=== PATIENT | male | born 2000 | race Caucasian/White ===

== ENCOUNTER 2025-02-07 16:13 | Emergency (ER) | payer OTHER, SELFPAY ==
[2025-02-07 16:41] VITALS: BP 136/69; PULSE 94; RESP 18; TEMP 36.5; O2SAT 100
--- OUTSIDE RECORDS SUMMARY | 2025-02-07 17:09 | XMS_ITS | Continuity of Care Document ---
Author Name [facility] Organization DOD-AL Care Team Providers Care Head Chef Name Role Phone DOD-AL Unavailable Unavailable Problems Combined list of problems from Department of Defense and Veterans Affairs facilities. It does not include entries that were removed or entered in error. Problem Status Onset Date Problem Type Date of Resolution Comme nts Source ASSESSMENT, POST-DEPLOYMENT, DOCUMENTED ON [id number] Inactive 06/13/2022 Condition DoD Allergies, Adverse Reactions, Alerts Combined list of allergies from Department of Defense and Veterans Affairs facilities. It does not include entries that were removed or entered in error. Substance Category Reaction Severity Reaction type Status Date Reported Comments Source No Known Allergies Drug allergy (disorder) active 10/24/2022 [place] [address] Immunizations Combined list of available immunizations from the Department of Defense and Veterans Affairs facilities. Immunization Series Date Given Administered By Site Reaction Lot Number CVX Code Drug Blade Grinder Status Comments Source Influenza, injectable, quadrivalent, preservative free 0 2021 [id number] SmithKline (SKB) complet ed Influenza , injectabl e, quadrival ent, preservat arian free DoD anthrax vaccine 3 2021 [id number] [employer] [place] ([facility]) complet ed anthrax vaccine DoD anthrax vaccine 2 2021 [id number] [employer] [place] (MIP) complet ed anthrax vaccine DoD anthrax vaccine 1 2021 [id number] 24 [employer] [place] ([facility]) complet ed anthrax vaccine DoD typhoid Vi capsular polysaccharid e vaccine 1 2021 [id number] Sanofi Pasteur ([facility]) complet ed typhoid Vi capsular polysacch aride vaccine DoD Influenza, injectable, quadrivalent, preservative free 3 2020 [id number] 150 Adianaine (SKB) complet ed Influenza , injectabl e, quadrival ent, preservat arian free DoD SARS-COV-2 (COVID-19) vaccine, mRNA, spike protein, LNP, preservative free, 100 mcg or 50 mcg dose 2 2020 [id number] 207 RealDirect, Inc. (MOD) complet ed SARS-COV- 2 (COVID-19 ) vaccine, mRNA, spike protein, LNP, preservat arian free, 100 mcg or 50 mcg dose DoD SARS-COV-2 (COVID-19) vaccine, mRNA, spike protein, LNP, preservative free, 100 mcg or 50 mcg dose 1 2020 LIZETH MICHAEL [id number] 207 [employer] Inc. (MOD) complet ed SARS-COV- 2 (COVID-19 ) vaccine, mRNA, spike protein, LNP, preservat arian free, 100 mcg or 50 mcg dose DoD Influenza, injectable, quadrivalent, preservative free 1 2019 [id number] 150 Seqirus (SEQ) complet ed Influenza , injectabl e, quadrival ent, preservat arian free DoD hepatitis A-hepatitis B vaccine 2019 [id number] 104 GlaxoSmithKli ne complet ed hepatitis A-hepatit is B vaccine 03/25/20 Given Ambulat ory Pharmac y hepatitis A-hepatitis B vaccine 2019 [id number] 104 GlaxoSmithKli ne complet ed hepatitis A-hepatit is B vaccine 03/25/20 Given Ambulat ory Pharmac y hepatitis A and hepatitis B vaccine 3 2019 [id number] 104 [facility] (SKB) complet ed hepatitis A and hepatitis B vaccine DoD varicella virus vaccine 2019 [id number] 21 Merck & Company Inc complet ed varicella virus vaccine 09/06/19 Given Ambulat ory Pharmac y hepatitis A-hepatitis B vaccine 2019 [id number] 104 GlaxoSmithKli ne complet ed hepatitis A-hepatit is B vaccine 09/06/19 Given Ambulat ory Pharmac y varicella virus vaccine 2019 [id number] 21 Merck & Company Inc complet ed varicella virus vaccine 09/06/19 Given Ambulat ory Pharmac y hepatitis A-hepatitis B vaccine 2019 [id number] 104 GlaxoSmithKli ne complet ed hepatitis A-hepatit is B vaccine 09/06/19 Given Ambulat ory Pharmac y varicella virus vaccine 1 2019 [id number] 21 Merck (MSD) complet ed varicella virus vaccine DoD hepatitis A and hepatitis B vaccine 1 2019 [id number] 104 Adianaine (SKB) complet ed hepatitis A and hepatitis B vaccine DoD hepatitis A-hepatitis B vaccine 2018 [id number] 104 GlaxoSmithKli ne complet ed hepatitis A-hepatit is B vaccine 07/19/19 Given Ambulat ory Pharmac y varicella virus vaccine 2018 [id number] 21 Merck & Company Inc complet ed varicella virus vaccine 07/19/19 Given Ambulat ory Pharmac y hepatitis A-hepatitis B vaccine 2018 [id number] 104 GlaxoSmithKli ne complet ed hepatitis A-hepatit is B vaccine 07/19/19 Given Ambulat ory Pharmac y varicella virus vaccine 2018 [id number] 21 Merck & Company Inc complet ed varicella virus vaccine 07/19/19 Given Ambulat ory Pharmac y varicella virus vaccine 1 2018 [id number] 21 Merck (MSD) complet ed varicella virus vaccine DoD hepatitis A and hepatitis B vaccine 1 2018 [id number] 104 SmithKline (SKB) complet ed hepatitis A and hepatitis B vaccine DoD adenovirus vaccine, live 2018 [id number] 4 143 Teva Pharmaceutica complet ed adenoviru s vaccine, live 07/16/19 Given Ambulat ory Pharmac y influenza, injectable, quadrivalent- pf 2018 [id number] 346 150 Seqirus complet ed influenza , injectabl e, quadrival ent-pf 07/16/19 Given Ambulat ory Pharmac y tetanus, diphtheria, acellular pertu is 2018 [id number] 115 GlaxoSmithKli ne complet ed tetanus, diphtheri a, acellular pertussis 07/16/19 Given Ambulat ory Pharmac y meningococcal A,C,Y,W-135 (MCV4P) 2018 [id number] 114 sanofi pasteur complet ed meningoco ccal A,C,Y,W-1 35 (MCV4P) 07/16/19 Given Ambulat ory Pharmac y poliovirus vaccine, inactivated 2018 [id number] 10 sanofi pasteur complet ed polioviru s vaccine, inactivat ed 07/16/19 Given Ambulat ory Pharmac y influenza, injectable, quadrivalent- pf 2018 [id number] 346 150 Seqirus complet ed influenza , injectabl e, quadrival ent-pf 07/16/19 Given Ambulat ory Pharmac y adenovirus vaccine, live 2018 [id number] 4 143 Teva Pharmaceutica ls complet ed adenoviru s vaccine, live 07/16/19 Given Ambulat ory Pharmac y tetanus, diphtheria, acellular pertu is 2018 745N2 [address] complet ed tetanus, diphtheri a, acellular pertussis 07/16/19 Given Ambulat ory Pharmac y meningococcal A,C,Y,W-135 (MCV4P) 2018 [id number] 114 sanofi pasteur complet ed meningoco ccal A,C,Y,W-1 35 (MCV4P) 07/16/19 Given Ambulat ory Pharmac y poliovirus vaccine, inactivated 2018 [id number] 10 sanofi pasteur complet ed polioviru s vaccine, inactivat ed 07/16/19 Given Ambulat ory Pharmac y poliovirus vaccine, inactivated 1 2018 [id number] 10 Sanofi Pasteur (PMC) complet ed polioviru s vaccine, inactivat ed DoD meningococcal polysaccharid e (groups A, C, Y and W-135) diphtheria toxoid conjugate vaccine (MCV4P) 1 2018 [id number] 114 Sanofi Pasteur (PMC) complet ed meningoco ccal polysacch aride (groups A, C, Y and W-135) diphtheri a toxoid conjugate vaccine (MCV4P) DoD tetanus toxoid, reduced diphtheria toxoid, and acellular pertu is vaccine, adsorbed 1 2018 745N2 115 mycujoo (SKB) complet ed tetanus toxoid, reduced diphtheri a toxoid, and acellular pertussis vaccine, adsorbed DoD Adenovirus, type 4 and type 7, live, oral 1 2018 [id number] 4 143 [facility] (BRR) complet ed Adenoviru s, type 4 and type 7, live, oral DoD Influenza, injectable, quadrivalent, preservative free 1 2018 [id number] 346 150 Seqirus (SEQ) complet ed Influenza , injectabl e, quadrival ent, preservat arian free DoD measles virus vaccine 0 2018 05 () Not Given measles virus vaccine DoD rubella virus vaccine 0 2018 06 () Not Given rubella virus vaccine DoD mumps virus vaccine 0 2018 07 () Not Given mumps virus vaccine DoD Results Combined list of recent chemistry, hematology and other laboratory results from Department of Defense and Veterans Affairs, ranging from 15 months to all on record, depending upon the facility. Order Name Results Value Reference Range Date Interpretation Specimen Comments Source Infectiou s Disease HIV-1/O/2 Non-Reac tive 1 (11/10/24 3:30 PM) 11/10 N Interpretiv e Data: INTERPRETAT ION: This method is a screening procedure for the detection of HIV p24 Antigen and Antibodies to HIV-1, including Group O, and/or HIV-2. NON-REACTIV E: HIV-1 antigen and HIV-1 / HIV-2 antibodies were not detected. No laboratory evidence of HIV infection. A negative test result does not exclude the possibility of exposure to or infection with HIV. HIV antibodies and/or p24 antigen may be undetectabl e in some stages of the infection and in some clinical conditions. If acute HIV infection is suspected, consider submitting another specimen to a reference laboratory for HIV-1 RNA. SCREEN REACTIVE - CONFIRMATIO N TO FOLLOW: Possible presence of HIV-1antibo dies, HIV-2 antibodies and/or HIV-1 p24 antigen. Specimen will reflex to the confirmatio n testing that fulfills the Center for Disease Control and Prevention' s HIV diagnostic algorithm. Refer to [facility] Lab Guide for additional information : [email or web address]/ kj/[email or web address]/EPIL ab/Pages/la [email or web address] x Testing performed by Electro[employer] alberto ce. 5600A-U [facility] EPILAB Infectiou s Disease HIV-1/O/2 Non-Reac tive 2 (01/22/24 1:50 PM) 01/21 N Interpretiv e Data: INTERPRETAT ION: This method is a screening procedure for the detection of HIV p24 Antigen and Antibodies to HIV-1, including Group O, and/or HIV-2. NON-REACTIV E: HIV-1 antigen and HIV-1 / HIV-2 antibodies were not detected. No laboratory evidence of HIV infection. A negative test result does not exclude the possibility of exposure to or infection with HIV. HIV antibodies and/or p24 antigen may be undetectabl e in some stages of the infection and in some clinical conditions. If acute HIV infection is suspected, consider submitting another specimen to a reference laboratory for HIV-1 RNA. SCREEN REACTIVE - CONFIRMATIO N TO FOLLOW: Possible presence of HIV-1antibo dies, HIV-2 antibodies and/or HIV-1 p24 antigen. Specimen will reflex to the confirmatio n testing that fulfills the Center for Disease Control and Prevention' s HIV diagnostic algorithm. Refer to [facility] Lab Guide for additional information : [email or web address].[facility]/ [email or web address]/[email or web address]/EPIL ab/Pages/la [email or web address] x Testing performed by Dora johnson 5600A-U [facility] Miscellan eous Sendouts Repository Sample Received (01/22/24 1:50 PM) 01/21 N 5600A-U [facility] EPILAB Encounters Combined list of: 1) Encounters from Department of Veterans Affairs facilities going backup to the last 18 months, not all VA inpatient encounters are included; 2) Encounters from the Department of Defense facilities going backup to 280 months. Location Location Details Encounter Type Encounter Number Reason For Visit Attending Provider ADM Date DC Date Status Disposition [place] [address](Hea ring Conservat ion, BMT) OUTPATIENT [id number] JOEL SUMMERS 07/20 Released w/o Limitations [facility] [place] [address](H earing Conserv ation, BMT) [place] [address] OUTPATIENT [id number] Notes Entered by: NEELIMA WHITNEY 20 Jul 2019 1328 ------- ------- ------- ------- -- Strep Prophyl MAX Nicolas 07/20 Released w/o Limitations [facility] [place] [address]([facility] e[facility]equiel) [facility] Medical [facility] [place] QUINTEROS [place]) TELE CONSULT [id number] Notes Entered by: LORENE ROBERTS 11 Apr 2020 1409 ------- ------- ------- ------- [facility] LORENE DAVIS 04/11 Released to Self Care [address] [place] [address])([facility]) [address] [place] [address])([facility]) OUTPATIENT [id number] Notes Entered by: NATALIA TREVINO 01 Jul 2020 1513 ------- ------- ------- ------- -- Audiogr am NATALIA TREVINO 07/01 Released w/o Limitations [address] [place] [address])([facility]) [address] [place] [address])([facility]) TELE CONSULT [id number] Notes Entered by: LORENE ROBERTS 12 Jul 2020 1441 ------- ------- ------- ------- -- Dental- 422 Issue LORENE DAVIS 07/12 Other Not Elsewhere Classified [address] [place] [address])([facility]) [address] [place] [address])([facility]) OUTPATIENT [id number] 9 Notes Entered by: Brice CADENA 11 Dec 2020 1321 ------- ------- ------- ------- -- phaq JACKIE CADENA 12/11 Released w/o Limitations [address] [place] [address])([facility]) [address] [place] [address])([facility]) OUTPATIENT [id number] Notes Entered by: KAYA LOPES 16 May 2021 1115 ------- ------- ------- ------- -- ANNUAL AUDIOGR AM MARTINA LINARES 05/16 Released w/o Limitations [address] [place] [address])(09 19 Primary Care Clinic) [address] [place] [address])(126 th [facility]) OUTPATIENT [id number] Notes Entered by: KEYSHAWN REDMAN 28 Oct 2021 1408 ------- ------- ------- ------- -- KEYSHAWN ODONNELL 10/28 Released w/o Limitations [address] [place] [address])(09 19 Primary Care [facility]) [address] [place] [address])(126 [facility]) OUTPATIENT [id number] Notes Entered by: Brice CADENA 03 Dec 2021 1626 ------- ------- ------- ------- -- JACKIE Davis 12/03 Released w/o Limitations [address] [place] [address])(09 19 Primary Care Clinic) [address] [place] [address])(126 [facility]) OUTPATIENT [id number] SHLOMO DOMÍNGUEZ 01/03 Released w/o Limitations [address] [place] [address])(09 19 Primary Care Clinic) [address] [place] [address])(126 th [facility]) OUTPATIENT [id number] Notes Entered by: NATALIA TREVINO 31 Mar 2022 1626 ------- ------- ------- ------- -- AUDIOGR AM - JULIANNE STANTON 03/31 Released w/o Limitations [address] [place] [address])(09 19 Primary Care Clinic) [address] [place] [address])(Ramírez [facility] Virus) OUTPATIENT [id number] SANDI Montes De Oca 04/15 Released w/o Limitations [address] [place] [address])(P andemic Virus) Theater Facility OUTPATIENT [id number] Theater Provider 06/14 Released w/o Limitations Theater Facilit y [address] [place] [address] Dem[facility])(126 Primary Care Clinic) OUTPATIENT [id number] Notes Entered by: Brice CADENA 09 Dec 2022 0850 ------- ------- ------- ------- -- phaq JACKIE CADENA 12/09 Released w/o Limitations [address] [place] [address] [facility])(09 19[facility]) [address] [place] [address])([address] [place] [address]) TELE CONSULT [id number] Notes Entered by: CHRISSY MICHAEL 11 Mar 2023 1313 ------- ------- ------- ------- -- Review LIZETH MICHAEL 03/11 Other Not Elsewhere Classified [address] [place] [address] [place])(09 19[facility]) [address] [place] [address])([facility]) OUTPATIENT [id number] Notes Entered by: Brice CADENA 12 Mar 2023 1413 ------- ------- ------- ------- -- review of a lucrecia monte DRHA3 JACKIE CADENA 03/12 Released w/o Limitations [address] [place] [address] [facility])(09 19[facility]) 8224R-[id number] [facility] Dental [id number] SYLVIA CAMARA 09/25 Discharge Disposition: Home or Self Care 8224R-1 26 ANNALISE 0055A-375 th [facility] Outpatient [id number] TEQUILA ORGAN 11/10 Discharge Disposition: Home or Self Care 0055A-[facility] 8224R-126 [facility] Clinic [id number] JACKIE DAVISON 11/18 Discharge Disposition: Home or Self Care 8224R-1 26 ANNALISE 0055H-375 th [facility] [id number] TEQUILA LMORGAN 05/02 /2025 05/02 /2025 Discharge Disposition: Home or Self Care 0055H-3 [facility] Procedures Combined list of: 1) Procedures from Department of Veterans Affairs facilities going back up to thelast 18 months, not all [place] non-surgical procedures are included; 2) All procedures from the Department of Defense facilities. Procedure Procedure Type Code Date Perfomer Comments [facility] No data available for this section Ambulatory Pharmacy PURE TONE AUDIOMETRY (THRESHOLD), AUTOMATED; AIR ONLY 022 [facility] PSYCHOLOGICAL OR NEUROPSYCHOLOGICAL TEST ADMINISTRATION, WITH SINGLE AUTOMATED, STANDARDIZED INSTRUMENT VIA ELECTRONIC PLATFORM, WITH AUTOMATED RESULT ONLY 022 [facility] PURE TONE AUDIOMETRY (THRESHOLD), AUTOMATED; AIR ONLY 020 [facility] Threshold Audiogram (Pure Tone) Threshold Audiogram (Pure Tone) [id number] Supervised Injection Intramuscular Supervised Injection Intramuscular [address] [facility] Threshold Audiogram (Pure Tone) Automated Threshold Audiogram (Pure Tone) Automated 0208T NATALIA TREVINO [facility] Psychometric Neuropsych Testing Battery Admin By Computer Psychometric Neuropsych Testing Battery Admin By Computer [id number] [facility] Social History Combined list of available smoking, tobacco, and other social history from Department of Defense and Veterans Affairs facilities. Social History Type Response Date Comment [facility] Sex Representation Male (finding) 05/26/2020 Un known Organization Sexual Orientation Ambula tory Pharmacy Gender identity Ambulator y Pharmacy This section is an empty social history section. [facility] Assessment and Plan Combined list of future care activities from Department of Defense and Veterans Affairs facilities (e.g., assessment and plan notes, appointments, orders, and referrals). Additional future care activities may be listed in the Plan of Care section. 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 Patient s PHAQ responses suggest there WERE NO Priority items requiring immediate action. Retention Waiver: No Profile: No Medications: None reported or found Medication List Active Medications No Active Medications Found Medications Inactivated in the Last 72 Hours No medications found. Allergies: No Known Allergies Does youth services librarian need Annual Mental Health review? NO VA Disability Rating: No If yes please update below. Time Motion Analyst Note: SM reports he is in excellent health with no pain, no medications and no new medical history. report complete. PHAQ ready for PCM review and signature. 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 Patient s PHAQ responses suggest Routine i tems requiring action. Retention Waiver: No P rofile: No Medications: Medication List Active Medications No Active Medications Found Medications Inactivated in the Last 72 Hours No medications found. Allergies: No Known Allergies Does youth services librarian need Annual Mental Health review? 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 Member has nothing more to report. PHAQ ready for PCM review and signature. Addendum by JACKIE CADENA on January 05, 2024 12:03 CDT PHAQ Completed in [facility], [id number] c opied below. Diagnosis is [id number] Medication reconciliation was accomplished. IMR requirements checked in [facility] (all GREEN). General pavel chaparro performed i n chart review. Denies SI/HI. All questions answered. Member has no n on emergent positive responses on P AYDEN. I t has not inhibited member from performing their duties. Member is assumed fit for duty. Denies any other acute or chronic health concerns currently. Mental health resources to include the mental health clinic, OP, Visual Merchandising Assistant, and One Source discussed with patient v ia review. Recommend f/u with PCM for any new or ongoing m edical concerns. Member can: 1) deploy 2) perform the duties of the assigned [employer], 3) meet retention medical standards, 4) complete the fitness assessment (FA), X08.8- A ir contaminants exposure i n past d eployment(s).Member has been exposed to but not limited to poor air quality, dust, mold, animal excrement. Member is not symptomatic currently but may have issues in the future. COPY OF PHAQ2 [id number]: ANNUAL PERIODIC HEALTH ASSESSMENT I. IT APPLICATION ARCHITECT INFORMATION AND DEMOGRAPHICS (SMI) 1. Last Name: DERIC 2. First Name: WANDA 3. Middle Name: MANUEL 4. Assessment Date: 5. : 6. Age: 22 7. Gender: M 8. Do[employer] ID Number: [id number] 9. Service Branch: [employer] 10. Component: 11. Status: Active [employer] [place] 12. Pay Grade: E05 13. Unit Name: [address] [place] [address] 14. Duty Station/Location: [place] 15. UIC: [id number] 16. Is this your first Periodic Health Assessment (PHA)?: N 17. Are you enrolled in a secure messaging system with your health care provider?: U 18. Current contact information: Preferred Method: Day Time Phone DSN: Day Time Phone: [phone] Night Time Phone: [phone] Email 1: [email or web address] Email 2: Address: [address] [place] [address] E City: [place] State: [place] Zip Code: [phone] 19. Point of contact who can always reach you: Name: ARRON HOPKINS Phone 1: [phone] Phone 2: EMAIL: [email or web address] Address: [address] [place] [address] E City: [place] State: [place] Zip Code: [address] II. DEPLOYMENT INFORMATION (DEP) 1. [ 1 ] Total number of deployments in the PAST 5 YEARS 2. [ [place] ] Primary country of last deployment 3. [ ] Date departed theater 4. [ N ] Are you going to deploy within the NEXT 120 DAYS? III. 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 [ No ] Does your specialty require an operational duty physical exam? 4. [ No ] Are you currently enrolled in a medical surveillance/occupational health program?: No IV. MEDICAL CONDITIONS (SLIME): 1. Since your last PHA, have you experienced any of the following health conditions, and if so, what is your status? [ ] Conditions with no medical care [ ] Conditions with medical care, but no longer under treatment [ ] Conditions with medical care, and NOW under treatment 2. Since your last PHA, have you experienced any of the following health conditions, and if so, what is your status? [ ] Conditions with no medical care [ ] Conditions with medical care, but no longer under treatment [ ] Conditions with medical care, and NOW under treatment 3. For any condition marked YES in question 1 or 2, are you currently on any profile or limited duty for that condition? [ ] Conditions 4. [ Yes ] Have you been based or stationed at a location where an open burn pit was used? 5. [ No ] Have you been exposed to toxic airborne chemicals or other airborne contaminants? 6. [ No ] Are you enrolled in the Airborne Hazards and Open Burn Pit Registry? 7. [ Y ] Federal law requires eligible members to enroll in the Airborne Hazards and Open Burn Pit Registry or opt-out. If eligble, choose one: 8. Have you had any surgery since your last PHA?: No 10.a. [ No ] Since your last PHA, has a health care provider recommended surgery(s) that you have not had? 11.a. [ No ] Do you currently require hearing aids, special medical supplies, CPAP, adaptive equipment, assistive technology devices, and/or other special accommodations? 12.a. [ No ] Do you have a waiver or profile for any part of your Service's physical fitness test? 13.a. [ No ] Do you have any problems wearing a gas mask, ballistic helmet, body armor, and/or chemical/biological protective garments? 14.a. [ No ] Have you ever been told by a health care provider that you SHOULD NOT receive an immunization for medical reasons? 15.a. [ No ] Do you have a permanent profile or an Assignment Limitation Code C? 16.a. [ No ] Are you on a temporary profile or limited duty? 17. [ 0 ] During the PAST 2 years, how many times have you been placed on a temporary profile or on limited duty? V. INDIVIDUAL MEDICAL READINESS (IMR) 1. [ No ] Do you have any allergies? 3. [ Not required ] Do you have red medical warning dog tags? 4. [ No ] Do you wear corrective lenses? . BEHAVIORAL HEALTH (MHA) 1. a. [ None ] Over the PAST MONTH, what major life stressors have you experienced that are a cause of significant concern or make it difficult for you to do your work, take care of things at home, or get along with other people (for example, serious conflicts with others, relationship problems, or a legal, disciplinary or financial problem)? 2. a. [ No ] In the PAST YEAR did you receive care for any mental health condition or concern such as, but not limited to post traumatic stress disorder (PTSD), depression, anxiety disorder, alcohol abuse or substance abuse? 3. [ None ] What prescription or over-the counter medications (including herbals/supplements) for sleep, pain, combat stress, or a mental health problem are you CURRENTLY taking? 4. a. [ No ] In the past 12 months, have you gambled? 5. a. [ Monthly or less ] How often do you have a drink containing alcohol? 5. b. [ 1 or 2 ] How many drinks containing alcohol do you have on a typical day when you are drinking? 5. c. [ Never ] How often do you have six or more drinks on one occasion? 6. Have you ever had any experience that was so frightening, horrible, or upsetting that in the PAST MONTH, you: 6. a. [ No ] Have had nightmares about it or thought about it when you did not want to? 6. b. [ No ] Tried hard not to think about it or went out of your way to avoid situations that remind you of it? 6. c. [ No ] Were constantly on guard, watchful or easily startled? 6. d. [ No ] [place] numb or detached from others, activities, or your surroundings? 6. e. [ Not answered ] [place] guilt or unable to stop blaming yourself or others for the event(s) or any problems the event(s) may have caused? 7. Over the LAST 2 WEEKS, how often have you been bothered by the following problems? 7. a. [ Not at all ] Little interest or pleasure in doing things 7. b. [ Not at all ] Feeling down, depressed, or hopeless 8. [ No ] Would you like to schedule an appointment with a health care provider to discuss any health concern(s)? 9. [ No ] Are you interested in receiving information or assistance for a stress, emotional or alcohol concern? 10. [ No ] Are you interested in receiving assistance for a family or relationship concern? 11. [ No ] Would you like to schedule a visit with a tank tender, mental health care provider, or a community support counselor? VII. FAMILY HISTORY AND LIFESTYLE (LIF) 1. [ Excellent ] Overall, how would you rate your health during the PAST MONTH? 2. [ None/Don't Know ] Member indicates that family members have the following problems 6. [ Yes ] I participate in moderate intensity physical activites at least 2.5 hours, or a combination of moderate and vigorous aerobic activites, for at least 75 minutes per week. 7. In a typical week, I do physical activities specifically designed to STRENGTHEN my muscles: [ 5 ] Day(s) per week 8. [ None ] What prescriptions or [id number] medications are you CURRENTLY taking for health problems on a ROUTINE BASIS? 9. Which of the following products have you taken since your last PHA: Protein Supplements/Creatine: Once a week 11. Think about the PAST 30 DAYS. How often did you eat/drink the following foods/beverages? [ 3 to 6 servings per week ] Fruits [ 1 serving per day ] Vegetables [ 1 serving per day ] Starchy Vegetables [ 1 serving per day ] Whole Grains [ 1 serving per day ] Dairy and Calcium Containing Foods [ 3 to 6 servings per week ] Fish [ 2 servings per day ] Lean Protein [ 1 serving per day ] Sugar-Sweetened Beverages ] Have you had a cholesterol check by a health medicare sales executive within the PAST 5 YEARS? 13.a. In the PAST 30 DAYS, which of the following products have you used on at least one day? None 15. Which of the following best describes your past tobacco use? I have never used tobacco products. 16. [ No ] Are you regularly exposed to secondhand smoke? 17. [ 7 to 9 hours ] During the LAST 2 WEEKS, how many hours of sleep did you get on most days? 18. [ No ] During the LAST 2 WEEKS, have you felt impaired or unable to adequately perform due to sleepiness or poor quality sleep? 19. [ No ] Have you had any unexplained weight loss or gain since your last PHA? 20. Member is not at risk for sexually transmitted infections. 22. Since your last PHA, what, if anything, have you and your partner used to keep from getting ? [ I am, or my partner is, currently . ] I am not actively taking steps to prevent as 23. [ No ] In the last year, have you or your partner had a scare, where you were not trying to get but were worried enough to use a home test? X. OTHER MEDICAL (OTH) 1. [ 0 ] Rate the amount of pain you have had, on average, over the PAST 24 HOURS 3. [ No ] Since your last PHA, have you received care or treatment for any medical and/or mental health condition(s) from a civilian or non- facility? 5. Member acknowledged responsibility for reporting health issues. 7. [ No ] Woud you like to schedule an appointment with a health care provider to discuss any health concerns? XI. SEPARATION AND CHCF 1. 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 PART B. RECORD REVIEW AND RECOMMENDATIONS I. RECORD REVIEWER INFORMATION 1. Last Name: IVORY 2. First Name: ALLY 3. Middle Name: ADRIAN 4. Service Branch: [employer] 5. 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 EMAIL: [email or web address] 8. Facility: [address] [facility] 9. Unit: [address] [place] [address] 10. Address: [address] [place] [address] 11. State: [place] 12. Zip Code: [address] 13. 14. Date Record Review: II. MEDICAL SCREENING 1. [ ] Date of membership director's most recent PHA 2. [ 5 feet 7 inches Date: ] membership director's most recently documented height 3. [ 170 pounds Date: ] membership director's most recently documented weight 4. [ 122/72 Date: ] membership director's most recently documented blood pressure reading 5. [ No ] Does the membership director have a history of abnormal blood pressure since their last PHA? 6. [ Yes ] Does the membership director have a laboratory test of sickle cell trait documented in their permanent medical record? 7. [ No Cholesterol Test Documented ] What is the date of the membership director's most recently documented cholesterol test? 9. [ No Active Medications Documented ] List of membership director's active medications listed in their permanent medical record 10. [ No ] Is there a discrepancy between the active medication record review and the membership director's self-reported list of medications? 11. [ No Outside Care Documented ] List documented significant care the membership director has received since their last PHA from a provider OUTSIDE the Health System 12. [ No ] Is there a discrepancy between the membership director's list of OUTSIDE care (from OTH[facility]), and the OUTSIDE care found in the record? 13. [ No Inside Care Documented ] List documented significant care the membership director has received since their last PHA from a provider INSIDE the Health System 15. [ Not Answered ] Confirm that vaccine exemptions are listed in the medical record for each vaccine listed IV. FAMILY HISTORY AND LIFESTYLE 1. [ Yes ] Does the [id number] reflect the membership director's reported family history? . DEPLOYMENT-RELATED HEALTH ASSESSMENTS 1. [ No ] Based on your check of records, does the membership director have any due or overdue deployment health assessments which need to be completed with this PHA? VII. INDIVIDUAL MEDICAL READINESS 1. [ No ] Does the membership director have an Assignment Limitation Code C? 3. [ Classification: 2 ] Most recently documented dental exam 4. [ Yes ] Is the membership director current on all required immunizations in the immunization tracking system? 6. Does the membership director have the following laboratory tests documented in their permanent medical record? [ Yes ] HIV test within the PAST 24 months [ Yes ] G6PD results on file [ Yes ] Blood type and Rh on file [ Yes ] DNA test on file IX. ADDITIONAL RECORD REVIEWER COMMENTS 1. This record review does NOT have a need for provider notification or referral.2. 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 Member has nothing more to report. Date Record Review Completed: PART C. HEALTH CARE PROVIDER I. MENTAL HEALTH ASSESSMENT (MHA) PROVIDER INFORMATION 1. Last Name: FREDERICK 2. First Name: RL 3. Middle Name: Elizabeth 4. Service Branch: [employer] 5. 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 EMAIL: [email or web address] 8. Facility: [facility] 9. Unit: [facility] 10. Address: [address] [place] [address] 11. State: [place] 12. Zip Code: [address] 13. 14. Date HCP Review initiated: 1. Member marked that they did not have a concern or a difficulty with a major life stressor. 2. Address concerns identified on member questions 2 and 3. History of mental health care: N/A Member's response: Provider's comments: Medications: N/A Member's response: Provider's comments: 3. Member's AUDIT-C screening score was 1. (nothing required) 4. Member did not minesh yes on two or more of questions 6a through 6e. 5. Member did not minesh More than half the days or nearly every day on question 7a or 7b. 6. Suicide risk evaluation. 6. a. Ask: Over the past month, have you wished you were or wished you could go to sleep and not wake up?: No 6. b. Ask: Have you actually had any thoughts of killing yourself?: No 6. f. 1. Ask: In you lifetime, have you done anything, started to do anything, or prepared to do anything to end your life?: No 6. g. Further risk assessment comments: 7. Member states that they have not had thoughts or concerns over the past month that they might hurt or lose control with someone. 9. Summary of Provider's identified concerns needing referrals: None 11. Comments: 13. Supplemental services recommended/information provided: [facility] Date MHA Certified: III. PERIODIC HEALTH ASSESSMENT (PHA) PROVIDER INFORMATION 1. Last Name: RENEE 2. First Name: JACKIE 3. Middle Name: Mehdi 4. Service Branch: [employer] 5. 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 EMAIL: [email or web address] 8. Facility: [address] [facility] 9. Unit: [address] [facility] 10. Address: [address] [place] [address] 11. State: [place] 12. Zip Code: [address] 13. Phone: [phone] 14. Date HCP Review initiated: IV. PERIODIC HEALTH ASSESSMENT PROVIDER RECOMMENDATIONS and REFERRALS 1. Provider concerns with this assessment: No issues or concerns identified V. SUMMARY AND COMMENTS 1. Additional information summarizing findings during the membership director assessment: 2. Provider Comments: . INDIVIDUAL MEDICAL READINESS DISPOSITION DETERMINATION SLIME: Ready DEN: Ready IMM: Ready LAB: Ready ME: Ready IMR Status: Fully Medically Ready VII. SERVICE MEDICAL DEPLOYABILITY EVALUATION INDICATED Based on your review of all documentation, is the membership director medically deployable without limitations? Reference [facility] 6490.07 Yes (membership director DOES NOT currently have a medical condition that limits deployability) Date PHA Completed: END OF [id number] REPORT PROVIDER: Jackie Cadena, [facility], [place] NADEEN SUAREZ, SFS Chief, Aerospace Medicine, [facility] Quick[employer] Email: 1 [email or web address] COMM: [phone] DSN:[email or web address] FAX: [phone] 02/07/2025 8224R[facility] Functional Status Combined list of recent functional and cognitive assessments recorded at Department of Defense and Veterans Affairs (VA).VA Functional Candler Measurement (FIM) Scale: 1 = Total Assistance (Subject = 0% +), 2 = Maximal Assistance (Subject = 25% +), 3 = Moderate Assistance (Subject = 50% +), 4 = Minimal Assistance (Subject = 75% +), 5 = Supervision, 6 = Modified Candler (Device), 7 = Complete Candler (Timely, Safely). Assessment Date/Time Source Assessment Type Assessment Skill Assessment Score Assessment Details No data available for this section
--- NOTE | 2025-02-07 17:16 | ED.NAVMDI ---
HPI - Nausea/Vomiting/Diarrhea General Chief complaint: Nausea/Vomiting/Diarrhea Stated complaint: diarrhea,nausea Time Seen by Provider: 02/07/25 17:00 Source: patient and RN notes reviewed Mode of arrival: ambulatory Limitations: no limitations History of Present Illness HPI Narrative: 24-year-old male Presents to [facility] complaining of nausea, hand diarrhea for 2 days. Patient reports having abdominal cramping. Patient denies any abdominal pain, fevers, body aches, chills. Patient reports brown watery diarrhea and has had 6 episodes of diarrhea. Patient denies any blood or mucus in stools. Patient reports he was nauseous this morning had a small breakfast however he was able to have a large lunch this afternoon. Patient reports he is drinking plenty of fluids. Patient said he was at a wedding 3 days ago and had catered food, he is not sure if he got sick from eating something at the wedding. Patient has not tried any ipuz-nhj-[id number] for relief. Patient denies recent travel outside the country. Related Data Allergies Allergy/AdvReac Type Severity Reaction Status Date / Time No Known Allergies Allergy Verified 02/07/25 16:47 Review of Systems Review of Systems: CONSTITUTIONAL: Denies fever, chills, body aches, or sweats. EYES: Denies visual changes, redness, or discharge. ENT: Denies rhinorrhea, congestion, sore throat, or otalgia. CARDIOVASCULAR: Denies chest pain, palpitations, or edema. RESPIRATORY: Denies cough or dyspnea. GASTROINTESTINAL: Denies abdominal pain, bloody stools, vomiting, hematochezia. Positive for nausea hand diarrhea. GENITOURINARY: Denies dysuria or hematuria. SKIN: Denies rash or itching. MUSCULOSKELETAL: Denies back pain, joint pain, or myalgia. NEUROLOGIC: Denies headache, numbness, or weakness. PSYCHIATRIC: Denies anxiety or depression. All other systems reviewed are negative, except as documented in HPI. Exam Narrative: GENERAL: This is a well-nourished, well-developed adult, in no apparent distress. They are non ill-appearing, nontoxic appearing. HEAD: normocephalic, atraumatic. EYES: Sclera clear/white. Vision is grossly intact. Conjunctiva normal bilaterally. Extraocular movements intact. EARS: External ears normal, Hearing grossly intact. NOSE: External nose normal THROAT: Mucous membranes moist NECK: Normal range of motion CARDIOVASCULAR: Regular rate and rhythm. Normal S1 and S2. No clicks, gallops, rubs, or murmurs. RESPIRATORY: Respiratory rate normal, respiratory effort nonlabored, no respiratory distress. Lung sounds equal bilaterally. Lung sounds are clear to auscultation. No adventitious lung sounds. GASTROINTESTINAL: Abdomen soft, flat, non-tender, nondistended. Bowel sounds are active. No hepato-splenomegaly, or palpable masses. No guarding or rigidity. No rebound tenderness. SKIN: warm, Dry, intact with no suspicious lesions or rash, good texture and turgor. NEURO: awake, alert, and oriented to person, place and time. There were no obvious focal neurologic abnormalities. EXTREMITIES: No joint tenderness, effusion, or edema noted. BACK: Nontender without deformity. Course Course Emergency Course: Portions of this record may have been created with voice recognition software Level of Care: Express Care Visit Vital Signs Vital signs: Vital Signs Temperature 97.7 F 02/07/25 16:41 Pulse Rate 94 02/07/25 16:41 Respiratory Rate 18 02/07/25 16:41 Blood Pressure 136/69 02/07/25 16:41 Pulse Oximetry 100 02/07/25 16:41 Oxygen Delivery Room Air 02/07/25 16:41 Temperature 97.7 F 02/07/25 16:41 Pulse Rate 94 02/07/25 16:41 Respiratory Rate 18 02/07/25 16:41 Blood Pressure 136/69 02/07/25 16:41 Pulse Oximetry 100 02/07/25 16:41 Oxygen Delivery Room Air 02/07/25 16:41 MDM - Nausea/Vomiting/Diarrhea MDM Narrative Medical decision making narrative: Symptoms likely from a viral gastroenteritis. No peritoneal findings on exam. Will prescribe Zofran as needed for nausea and vomiting. Patient does not appear clinically dehydrated. Patient has been able to keep fluids down. Discussed physical exam findings. Advised supportive measures and signs/symptoms to go to the ER. Pt is appropriate for outpt treatment and f/u. Differential Diagnosis Differential diagnosis: Likely traveler's diarrhea, food poisoning and gastroenteritis Discharge Plan Discharge Clinical Impression: Gastroenteritis Patient Disposition: Home Condition: Stable Instructions: Gastroenteritis (ED) Additional Instructions: It is likely have a viral gastroenteritis. This is normally a self-limiting condition or resolve within 24-48 hours. However sometimes symptoms may linger on up to 7 days. It is recommended not to take anything for the diarrhea and allow the diarrhea to run its course. If the diarrhea persist and you feeling better, you may take Pepto-Bismol as needed to help control the diarrhea. Recommend hydration with plenty of fluids electrolyte supplementation such as Pedialyte. Follow-up PCP in 3-5 days. You may take Zofran as needed for nausea or vomiting. Practice good hand hygiene and wash her hands frequently. Your unable to keep anything down, he developed abdominal pain, fevers, uncontrollable diarrhea, concerns of dehydration, or any other concerns please go to the ER immediately. Patient Language: [place] Prescriptions: New ondansetron 4 mg tablet,disintegrating 4 mg PO Q8H PRN (Reason: nausea and vomiting) Qty: 14 0RF Follow-up/Referrals: [place], [Primary Care Provider] - Stand Alone Forms: Work/School Release IP Time of Disposition: 17:15
== END 2025-02-07 17:19 | disposition home or self-care (01) ==
DX: K52.9 Noninfective gastroenteritis and colitis, unspecified (principal)
CPT/HCPCS: 99203; G0463